=== PATIENT | female | born 1985 ===

== ENCOUNTER 2024-07-11 01:02 | Outpatient (CLI) | payer MEDICAID, SELFPAY ==
[2024-07-11 22:13] LABS: Homocysteine 12.8 umol/L (5.0-13.9)
[2024-07-15 11:54] LABS: Methylmalonic Acid 0.19 nmol/mL (<=0.40)
== END 2024-07-11 01:03 | disposition home or self-care (01) ==
PROVIDERS: PCP Physician Assistant Medical; Visit Provider Physician Assistant Medical
DX: E53.8 Deficiency of other specified B group vitamins (principal)
CPT/HCPCS: 36415; 80186; 83090